=== PATIENT | male | born 2005 | race Caucasian/White ===

== ENCOUNTER 2024-05-05 00:16 | Emergency (ER) | payer SELFPAY ==
[2024-05-05] MEDS: Sodium Chloride 0.9% 1,000 ML IV ONE (01:01)
[2024-05-05] MEDS: Ondansetron 4 MG/2 ML SDV IVPUSH ONE (01:01)
[2024-05-05 01:05] LABS: BASOPHILS PERCENT AUTO 0.2 % (0.0-1.0); EOSINOPHILS PERCENT AUTO 0.1 % (0.0-5.0); HEMATOCRIT 37.9 % (42.0-52.0); HEMOGLOBIN 13.1 gm/dl (14.0-18.0); IMMATURE GRAN ABSOLUTE AUTO 0.11 K/mm3 (0.00-0.05); IMMATURE GRAN PERCENT AUTO 0.6 % (0.0-0.4); LYMPHOCYTES PERCENT AUTO 17.1 % (50.0-65.0); MEAN CORPUSCULAR HEMOGLOBIN 28.9 pg (28.0-32.0); MEAN CORPUSCULAR HGB CONC 34.6 g/dl (32.0-36.0); MEAN CORPUSCULAR VOLUME 83.7 fl (83.0-99.0); MEAN PLATELET VOLUME 9.5 fl (9.4-12.4); MONOCYTES ABSOLUTE AUTO 1.3 K/mm3 (0.1-1.4); MONOCYTES PERCENT AUTO 7.5 % (2.0-10.0); NEUTROPHILS ABSOLUTE AUTO 13.1 K/mm3 (1.5-8.5); NEUTROPHILS PERCENT AUTO 74.5 % (35.0-45.0); PLATELET COUNT,PLT 263 K/mm3 (150-400); RED BLOOD CELL COUNT 4.53 M/mm3 (4.52-5.90); WHITE BLOOD CELL COUNT,WBC 17.58 K/mm3 (4.5-13.5)
[2024-05-05 01:08] LABS: BARBITURATE SCREEN,URINE NEGATIVE (CUTOFF=200); BENZODIAZEPINES SCREEN,URINE NEGATIVE (CUTOFF=150); BUPRENORPHINE SCREEN,URINE NEGATIVE (CUTOFF=10); METHADONE SCREEN, URINE NEGATIVE (CUT0FF=200); METHAMPHETAMINES SCREEN, URINE NEGATIVE (CUTOFF=500); OXYCODONE SCREEN,URINE NEGATIVE (CUT0FF=100); THC SCREEN,URINE 20 NG/ML PRESUMPTIVE POSITIVE (CUTOFF=50)
[2024-05-05 01:11] LABS: AMPHETAMINES SCREEN, URINE NEGATIVE (CUTOFF=500)
[2024-05-05 01:27] LABS: A/G RATIO 1.3 (1-2); ALBUMIN 3.5 g/dl (3.4-5.0); ANION GAP 13.4 (5-15); BILIRUBIN TOTAL 0.3 mg/dL (0.2-1.0); BUN/CREATININE RATIO 15.6 (14-18); CALCIUM 8.7 mg/dL (8.5-10.1); CREATININE 0.9 mg/dL (0.7-1.3); EST CRCL DRUG DOSING (CG) 105.87 mL/min; MAGNESIUM 1.6 mg/dL (1.8-2.4); POTASSIUM,K 3.4 mEq/L (3.5-5.1); PROTEIN TOTAL,TP 6.3 g/dl (6.4-8.2)
[2024-05-05 02:50] LABS: C-REACTIVE PROTEIN 0.05 mg/dL (<0.30)
== END 2024-05-05 04:08 | disposition home or self-care (01) ==
LOC: JD.ED 00:16
DX: F12.10 Cannabis abuse, uncomplicated (principal); R40.4 Transient alteration of awareness
CPT/HCPCS: 36415; 70450; 80053; 80143; 80179; 80306; 80307; 82550; 83605; 83690; 83735; 85025; 85652; 86140; 87040; 96361; 96374; 99285; C1758; J2405; J7030; 99284